=== PATIENT | male | born 1935 | race Caucasian/White ===

== ENCOUNTER → 2017-01-26 | Outpatient (CLI) | payer MEDICARE, OTHER ==
[2017-01-26 15:24] LABS: Blood Urea Nitrogen 20 mg/dL (9-20); Non-African American GFR(MDRD) >60 (>60 ml/min/1.73 sqM)
--- NOTE | 2017-01-26 16:33 | CT ---
EXAMINATION TYPE: CT urogram wo/w con DATE OF EXAM: 01/26/2017 COMPARISON: NONE INDICATION: Neoplasm of prostate. DLP: 3085 mGycm, Automated exposure control for dose reduction was used. CONTRAST: 100 mL of Omnipaque 300. Study performed TECHNIQUE: Axial images were obtained from above the diaphragm to the pubic rami in the axial plane a t 5 mm thick sections. Reconstructed images are reviewed on the computer in the coronal plane. FINDINGS: Limited CT sections are obtained the lung bases. The lung bases are clear. CT ABDOMEN: Liver: Normal Spleen: Normal Pancreas: Normal Adrenal glands: The adrenal glands are normal. Gallbladder: Gallstone is likely present. Kidneys: No masses are evident. No hydronephrosis is present. Mid medial left renal cyst is present measuring 5.1 cm in size. Inferior pole right renal cyst is present measuring 2.4 cm in size. Delay ed images were obtained through the kidneys, which remain unremarkable. Aorta: Vascular calcification is within the aorta. Inferior vena cava: Normal. CT PELVIS: Right inguinal hernia containing loops of bowel without obstruction are present. This appe ars to be distal ileum. Loops of bowel within the abdomen and pelvis are normal. Loops of bowel are without oral contrast limiting their evaluation. Appendix: Normal as visualized. Urinary bladder: Normal. Genitourinary structures: Prostate seeds from brachytherapy are likely present. Osseous structures: No suspicious lytic or sclerotic lesions. Three-D reconstructed images performed separately on the [employer] computer by the technologist are pres ented. Renal calyces infundibula and renal pelves are normal. There is some displacement of the left renal collecting system by the large mid renal pelvis cyst. Ureters follow a normal caliber course an d contour to the urinary bladder. Bilateral ureteral jets are evident. IMPRESSIONS: 1. Normal CT urogram. 2. Renal cysts. 3. No acute changes
== END | disposition home or self-care (01) ==
LOC: RADCTMAIN 14:39
PROVIDERS: ATTEND Urology
DX: C61 Malignant neoplasm of prostate (principal); N28.1 Cyst of kidney, acquired
CPT/HCPCS: 82565; 84520; 74178; 36415; 74400; Q9967

== ENCOUNTER → 2018-01-07 | Outpatient (CLI) | payer MEDICARE, OTHER ==
[2018-01-07 08:54] LABS: Basophils % (A) 0 %; Eosinophils # (A) 0.2 k/uL (0-0.7); Eosinophils % (A) 4 %; HCT 48.9 % (39.0-53.0); HGB 16.6 gm/dL (13.0-17.5); Lymphocytes # (A) 1.1 k/uL (1.0-4.8); Lymphocytes % (A) 20 %; MCH 30.7 pg (25.0-35.0); MCV 90.4 fL (80.0-100.0); Mean Platelet Volume 7.4; Monocytes # (A) 0.4 k/uL (0-1.0); Monocytes % (A) 7 %; Neutrophils # (A) 3.9 k/uL (1.3-7.7); Neutrophils % (A) 69 %; Platelet Count 196 k/uL (150-450); RBC 5.41 m/uL (4.30-5.90); RDW 13.1 % (11.5-15.5); WBC 5.6 k/uL (3.8-10.6)
[2018-01-07 10:00] LABS: ALT 31 U/L (21-72); AST 23 U/L (17-59); Albumin 4.2 g/dL (3.5-5.0); Alkaline Phosphatase 46 U/L (38-126); Anion Gap 8 mmol/L; Blood Urea Nitrogen 17 mg/dL (9-20); Calcium 9.1 mg/dL (8.4-10.2); Carbon Dioxide 28 mmol/L (22-30); Chloride 106 mmol/L (98-107); Cholesterol 153 mg/dL (<200); Glucose 108 mg/dL (74-99); HDL Cholesterol 39 mg/dL (40-60); LDL Cholesterol,Calculated 84 mg/dL (0-99); Potassium 4.1 mmol/L (3.5-5.1); Sodium 142 mmol/L (137-145); Total Bilirubin 1.9 mg/dL (0.2-1.3); Total Protein 7.1 g/dL (6.3-8.2); Triglycerides 148 mg/dL (<150)
[2018-01-07 10:44] LABS: Prostate Specific Antigen <0.10 ng/mL (0.00-4.00)
== END | disposition home or self-care (01) ==
LOC: LABWHC1 08:04
PROVIDERS: ATTEND Internal Medicine
DX: C61 Malignant neoplasm of prostate (principal); I10 Essential (primary) hypertension; E55.9 Vitamin D deficiency, unspecified
CPT/HCPCS: 36415; 80053; 80061; 82306; 84153; 85025

== ENCOUNTER → 2019-03-08 | Outpatient (CLI) | payer MEDICARE, OTHER ==
[2019-03-08 20:21] LABS: T4, Free (Free Thyroxine) 0.9 ng/dL (0.80-1.80)
== END | disposition home or self-care (01) ==
LOC: LABWHC1 10:49
PROVIDERS: ATTEND Internal Medicine
DX: R19.4 Change in bowel habit (principal)
CPT/HCPCS: 36415; 82150; 83690; 84439; 84443

== ENCOUNTER 2019-03-23 09:14 | Day surgery (SDC) | payer MEDICARE, OTHER ==
[2019-03-23] MEDS ORDERED: LACTATED RINGERS 900 ML IV ONE (10:00)
[2019-03-23] MEDS ORDERED: LIDOCAINE 1% 20 ML VIAL (10MG/ML) FOR IV START INTRADERMA ONE (10:00)
[2019-03-23 10:09] VITALS: TEMP 98.5
[2019-03-23] MEDS ORDERED: PROPOFOL 10 MG/ML 20 ML VIAL IV ONE (10:11)
[2019-03-23] MEDS ORDERED: LIDOCAINE 1% INJ 10MG/ML (20 ML MDV) ONE (10:11)
[2019-03-23 11:08] VITALS: RESP 18
--- NOTE | 2019-03-23 11:10 | P.PCN ---
Date of Procedure: 03/23/19 Description of Procedure: Brief history: Patient is a pleasant scheduled for an elective upper endoscopy as well as colonoscopy as a part of evaluation of altered bowel habits and epigastric abdominal pain. Procedure performed: Esophagogastroduodenoscopy with biopsy Colonoscopy with biopsy and polypectomy Estimated blood loss: Minimal. Preoperative diagnosis: Epigastric abdominal pain, change in bowel, diarrhea Anesthesia: [place] Procedure: After informed consent was obtained from the patient was brought into the endoscopy unit and IV sedation was administered by anesthesia under continuous monitoring. Initially upper endoscopy was done. The Olympus GF 190 video endoscope was inserted into the mouth and esophagus intubated without any difficulty and was gradually advanced into the stomach and duodenum and carefully examined. The bulb and second part of the duodenum appeared normal, biopsied. The scope was then withdrawn into the stomach adequately insufflated with air and upon careful examination the antrum and body, cardia and fundus were significant for diffuse erythema in the antrum and body suggestive of moderate gastritis with biopsies of antrum and body taken. The scope was then withdrawn into the esophagus. The GE junction was located at 41 cm to the incisors. It appeared regular with a grade a esophagitis noted in the distal esophagus biopsied. Rest of the esophagus appeared grossly normal except for some tortuosity suggestive of presbyesophagus. Patient tolerated the procedure well. At this time the patient continued to remain sedation. Initial digital rectal examination was normal. Olympus CF 190 video colonoscope was then inserted into the rectum and gradually advanced to the cecum without any difficulty. Careful examination was performed as the scope was gradually being withdrawn. The prep was excellent. The cecum, ascending colon, transverse colon, descending colon, sigmoid colon and rectum appeared normal. Normal appearing terminal ileum. Small 3 mm flat ileocecal valve removed with cold forcep polypectomy. Small ascending colon polyps measuring 3 mm and 4 mm removed with cold forcep polypectomy. Diminutive 1 mm descending colon polyp removed with cold forcep polypectomy. Mild sigmoid diverticulosis noted. Random biopsies of the terminal ileum, right colon and left colon. Retroflexion was performed in the rectum and no lesions were noted. Patient tolerated the procedure well. Impression: 1. LA grade a esophagitis biopsied, moderate gastritis of antrum and body biopsied, duodenal biopsies. 2. 2 small polyps in the ascending colon and one on the ileocecal valve removed with cold forcep polypectomy. Diminutive descending colon polyp removed with cold forcep polypectomy. Mild sigmoid diverticulosis. Random biopsies of the terminal ileum, right colon and left colon. Recommendations: Findings of this examination were discussed with the patient as well as his family. Okay to resume diet. Okay to resume medications. Await pathology from biopsies and polypectomy. Follow-up in gastroenterology clinic as previously scheduled. Continue current medical management.
[2019-03-23 11:27] VITALS: PULSE 52
[2019-03-23 11:41] VITALS: BP 170/85
== END 2019-03-23 12:25 | disposition home or self-care (01) ==
LOC: ORWHC2ENDO 09:14
PROVIDERS: ATTEND Internal Medicine
DX: K29.50 Unspecified chronic gastritis without bleeding (principal); R89.7 Abnormal histological findings in specimens from other organs, systems and tissues; K22.8 Other specified diseases of esophagus; K63.89 Other specified diseases of intestine; D12.0 Benign neoplasm of cecum; D12.2 Benign neoplasm of ascending colon; D12.4 Benign neoplasm of descending colon; K57.30 Diverticulosis of large intestine without perforation or abscess without bleeding; I10 Essential (primary) hypertension; K21.9 Gastro-esophageal reflux disease without esophagitis; Z88.1 Allergy status to other antibiotic agents; Z79.899 Other long term (current) drug therapy; Z79.1 Long term (current) use of non-steroidal anti-inflammatories (NSAID); Z98.890 Other specified postprocedural states; Z98.42 Cataract extraction status, left eye; Z98.41 Cataract extraction status, right eye
CPT/HCPCS: 88305; 45380; 43239; J2001; J2704

== ENCOUNTER → 2020-03-04 | Outpatient (CLI) | payer MEDICARE, OTHER ==
--- NOTE | 2020-03-04 09:21 | US ---
EXAMINATION TYPE: US liver DATE OF EXAM: 03/04/2020 COMPARISON: CT 01/26/17 CLINICAL HISTORY: 84-year-old male R79.89 Increased bilirubin level. TECHNIQUE: Multiple sonographic images of the right upper quadrant are obtained. FINDINGS: EXAM MEASUREMENTS: Liver Length: 17.4 cm Gallbladder Wall: 0.3 cm CBD: 0.4 cm Right Kidney: 10.9 x 6.2 x 6.3 cm Pancreas: Obscured by bowel gas Liver: Lt lobe is mostly obscured by bowel gas . Right lobe is slightly increased in echogenicity. Gallbladder: Wall echo shadow complex. Appears filled with stones Evidence for sonographic Richmond's sign: No CBD: wnl Right Kidney: No hydronephrosis; cyst lower pole 3.3 x 2.7 x 3.2 cm the posterior through-transmissi on. Internal low-level echoes could represent debris or could be artifactual. IMPRESSION: 1. Bowel gas obscures the pancreas and portions of the left liver lobe. There is a background of mild fatty infiltration of the liver. 2. Wall echo shadow complex suggests a stone packed gallbladder. Sonographic Richmond's sign is reporte d negative. 3. No biliary ductal dilatation.
== END | disposition home or self-care (01) ==
LOC: RADUSWWP 07:32
PROVIDERS: ATTEND Internal Medicine
DX: K76.0 Fatty (change of) liver, not elsewhere classified (principal); R14.3 Flatulence
CPT/HCPCS: 76705